=== PATIENT | male | born 1980 | race Caucasian/White ===

== ENCOUNTER 2019-06-01 16:13 | Emergency (ER) | payer BC ==
[2019-06-01 17:14] LABS: ANION GAP 14.8; CHLORIDE,CL 103 mmol/L (101-111); SODIUM,NA 136 mmol/L (135-145)
--- NOTE | 2019-06-01 17:26 | EDM.PDOC ---
ED HPI GENERAL MEDICAL PROBLEM - General Chief Complaint: Abdominal Pain Stated Complaint: ABD PAIN Time Seen by Provider: 06/01/19 17:04 Source of Information: Reports: Patient History Limitations: Reports: No Limitations - History of Present Illness INITIAL COMMENTS - FREE TEXT/NARRATIVE: This 39 yo male patient reports to the ED with diffuse abdominal pain and a week long history of constipation. The patient has had a history of abdominal/ pelvis surgeries. The patient reports he was in [place] eating mostly fruits, but when he got back 1 week ago, he changed his diet to mostly meat and has been having constipation problems since that time. The patient has attempted OTC laxatives, but has not been able to pass stool. The patient reported due to increased pain in his abdomen. Onset: Gradual Duration: Day(s):, Constant, Getting Worse Location: Reports: Abdomen Quality: Reports: Other Severity: Moderate Improves with: Reports: None Worsens with: Reports: None Context: Reports: Other Bilateral Lower Abdomen Pain Score (Numeric/FACES): 9 - Related Data Allergies Allergy/AdvReac Type Severity Reaction Status Date / Time Penicillins Allergy Severe Anaphylactic Verified 06/01/19 16:34 Shock promethazine [From Phenergan] Allergy Severe Muscle Verified 06/01/19 16:35 Aches Home Meds: Home Meds oxyCODONE HCl/Acetaminophen [Oxycodone-Acetaminophen 10-300] 1 tab PO TID [History] Past Medical History HEENT History: Reports: None Cardiovascular History: Reports: None Respiratory History: Reports: Other (See Below) Other Respiratory History: collapsed lung Gastrointestinal History: Reports: None Genitourinary History: Reports: None Musculoskeletal History: Reports: Fracture Other Musculoskeletal History: RIGHT femur- miley with 4 pins, 24 fractures and 2 major breaks in hips and pelvis-5 inch bolt through sacrum. 4 broken ribs, shattered elbow-plate with 7 screws. Plate was removed and 3 screws remain. 3 vertebrae injured. Other Neuro History: legs, hips, and hands neuropathy Psychiatric History: Reports: None Endocrine/Metabolic History: Reports: None Hematologic History: Reports: None Oncologic (Cancer) History: Reports: None Dermatologic History: Reports: None - Infectious Disease History Infectious Disease History: Reports: C-Difficile - Past Surgical History Head Surgeries/Procedures: Reports: None HEENT Surgical History: Reports: None Cardiovascular Surgical History: Reports: None Respiratory Surgical History: Reports: None GI Surgical History: Reports: None Endocrine Surgical History: Reports: None Neurological Surgical History: Reports: None Other Musculoskeletal Surgeries/Procedures:: See above Oncologic Surgical History: Reports: None Dermatological Surgical History: Reports: None Social & Family History - Family History Family Medical History: Noncontributory - Tobacco Use Smoking Status *Q: Never Smoker - Caffeine Use Caffeine Use: Reports: Coffee - Recreational Drug Use Recreational Drug Use: Yes Drug Use in Last 12 Months: Yes Recreational Drug Type: Reports: Marijuana/Hashish Other Recreational Drug Type: In [place] Recreational Drug Use Frequency: Rarely ED ROS GENERAL - Review of Systems Review Of Systems: Comprehensive ROS is negative, except as noted in HPI. ED EXAM, GI/ABD - Physical Exam Exam: Not Obtained Exam Limited By: No Limitations General Appearance: Alert, WD/WN, Moderate Distress Eyes: Bilateral: Normal Appearance, EOMI Ears: Normal External Exam, Normal Canal, Hearing Grossly Normal, Normal TMs Nose: Normal Inspection, Normal Mucosa, No Blood Throat/Mouth: Normal Inspection, Normal Lips, Normal Teeth, Normal Gums, Normal Oropharynx, Normal Voice, No Airway Compromise Head: Atraumatic, Normocephalic Neck: Normal Inspection, Supple, Non-Tender, Full Range of Motion Respiratory/Chest: No Respiratory Distress, Lungs Clear, Normal Breath Sounds, No Accessory Muscle Use, Chest Non-Tender Cardiovascular: Normal Peripheral Pulses, Regular Rate, Rhythm, No Edema, No Gallop, No JVD, No Murmur, No Rub GI/Abdominal Exam: Normal Bowel Sounds, No Organomegaly, No Distention, No Abnormal Bruit, No Mass, Pelvis Stable, Tender (diffuse) (Male) Exam: Deferred Rectal (Males) Exam: Deferred Back Exam: Normal Inspection, Full Range of Motion, NT Extremities: Normal Inspection, Normal Range of Motion, Non-Tender, Normal Capillary Refill, No Pedal Edema Neurological: Alert, Oriented, CN II-XII Intact, Normal Cognition, Normal Gait, Normal Reflexes, No Motor/Sensory Deficits Psychiatric: Normal Affect Skin Exam: Warm, Dry, Intact, Normal Color, No Rash Lymphatic: No Adenopathy Course - Vital Signs Last Recorded V/S: Last Vital Signs Temp 36.1 C 06/01/19 16:24 Pulse 61 06/01/19 16:24 Resp 18 06/01/19 16:24 BP 142/87 H 06/01/19 16:24 Pulse Ox 100 06/01/19 16:24 - Orders/Labs/Meds Orders: Active Orders 24 hr Category Date Time Status Enema [RC] ASDIRECTED Care 06/01/19 17:44 Active CULTURE BLOOD [BC] Stat Lab 06/01/19 16:34 Received Labs: Laboratory Tests 06/01/19 06/01/19 06/01/19 Range/Units 16:34 16:34 16:34 WBC 13.7 H (5.0-10.0) 10^3/uL RBC 4.82 (4.6-6.2) 10^6/uL Hgb 15.4 (14.0-18.0) g/dL Hct 44.2 (40.0-54.0) % MCV 91.7 (80-100) fL MCH 32.0 (27.0-34.0) pg MCHC 34.8 (33.0-35.0) g/dL Plt Count 255 (150-450) 10^3/uL Neut % (Auto) 74.9 (42.2-75.2) % Lymph % (Auto) 16.8 L (20.5-50.1) % [place] % (Auto) 5.7 (2-8) % Eos % (Auto) 2.1 (1.0-3.0) % Baso % (Auto) 0.5 (0.0-1.0) % Sodium (135-145) mmol/L Potassium (3.6-5.0) mmol/L Chloride (101-111) mmol/L Carbon Dioxide (21.0-31.0) mmol/L Anion Gap BUN (7-18) mg/dL Creatinine (0.6-1.3) mg/dL Est Cr Clr Drug Dosing mL/min Estimated GFR (MDRD) BUN/Creatinine Ratio Glucose (74-105) mg/dL Lactic Acid 1.4 (0.5-2.2) mmol/L Calcium (8.4-10.2) mg/dl Total Bilirubin (0.2-1.0) mg/dL AST (10-42) IU/L ALT (10-60) IU/L Alkaline Phosphatase (42-121) IU/L Total Protein (6.7-8.2) g/dl Albumin (3.2-5.5) g/dl Globulin Albumin/Globulin Ratio Amylase 132 H (28-100) U/L Lipase 27 (22-51) U/L Urine Color (YELLOW) Urine Appearance (CLEAR) Urine pH (5.0-9.0) Ur Specific [place] (1.005-1.030) Urine Protein (NEGATIVE) Urine Glucose (UA) (NEGATIVE) Urine Ketones (NEGATIVE) Urine Occult Blood (NEGATIVE) Urine Nitrite (NEGATIVE) Urine Bilirubin (NEGATIVE) Urine Urobilinogen (0.2-1.0) mg/dL Ur Leukocyte Esterase (NEGATIVE) Urine Opiates Screen (NEGATIVE) Ur Oxycodone Screen (NEGATIVE) Urine Methadone Screen (NEGATIVE) Ur Barbiturates Screen (NEGATIVE) U Tricyclic Antidepress (NEGATIVE) Ur Phencyclidine Scrn (NEGATIVE) Ur Amphetamine Screen (NEGATIVE) U Methamphetamines Scrn (NEGATIVE) Urine MDMA Screen (NEGATIVE) U Benzodiazepines Scrn (NEGATIVE) Urine Cocaine Screen (NEGATIVE) U Marijuana (THC) Screen (NEGATIVE) 06/01/19 06/01/19 06/01/19 Range/Units 16:34 17:38 17:38 WBC (5.0-10.0) 10^3/uL RBC (4.6-6.2) 10^6/uL Hgb (14.0-18.0) g/dL Hct (40.0-54.0) % MCV (80-100) fL MCH (27.0-34.0) pg MCHC (33.0-35.0) g/dL Plt Count (150-450) 10^3/uL Neut % (Auto) (42.2-75.2) % Lymph % (Auto) (20.5-50.1) % [place] % (Auto) (2-8) % Eos % (Auto) (1.0-3.0) % Baso % (Auto) (0.0-1.0) % Sodium 136 (135-145) mmol/L Potassium 3.8 (3.6-5.0) mmol/L Chloride 103 (101-111) mmol/L Carbon Dioxide 22.0 (21.0-31.0) mmol/L Anion Gap 14.8 BUN 18 (7-18) mg/dL Creatinine 1.0 (0.6-1.3) mg/dL Est Cr Clr Drug Dosing 96.00 mL/min Estimated GFR (MDRD) > 60 BUN/Creatinine Ratio 18.00 Glucose 133 H (74-105) mg/dL Lactic Acid (0.5-2.2) mmol/L Calcium 9.2 (8.4-10.2) mg/dl Total Bilirubin 0.8 (0.2-1.0) mg/dL AST 18 (10-42) IU/L ALT 15 (10-60) IU/L Alkaline Phosphatase 55 (42-121) IU/L Total Protein 7.3 (6.7-8.2) g/dl Albumin 4.6 (3.2-5.5) g/dl Globulin 2.7 Albumin/Globulin Ratio 1.70 Amylase (28-100) U/L Lipase (22-51) U/L Urine Color Yellow (YELLOW) Urine Appearance Clear (CLEAR) Urine pH 5.5 (5.0-9.0) Ur Specific [place] >= 1.030 (1.005-1.030) Urine Protein Negative (NEGATIVE) Urine Glucose (UA) Negative (NEGATIVE) Urine Ketones Trace H (NEGATIVE) Urine Occult Blood Negative (NEGATIVE) Urine Nitrite Negative (NEGATIVE) Urine Bilirubin Negative (NEGATIVE) Urine Urobilinogen 0.2 (0.2-1.0) mg/dL Ur Leukocyte Esterase Negative (NEGATIVE) Urine Opiates Screen Negative (NEGATIVE) Ur Oxycodone Screen Positive H (NEGATIVE) Urine Methadone Screen Negative (NEGATIVE) Ur Barbiturates Screen Negative (NEGATIVE) U Tricyclic Antidepress Negative (NEGATIVE) Ur Phencyclidine Scrn Negative (NEGATIVE) Ur Amphetamine Screen Negative (NEGATIVE) U Methamphetamines Scrn Negative (NEGATIVE) Urine MDMA Screen Negative (NEGATIVE) U Benzodiazepines Scrn Negative (NEGATIVE) Urine Cocaine Screen Negative (NEGATIVE) U Marijuana (THC) Screen Positive H (NEGATIVE) Meds: Medications Discontinued Medications Generic Name Dose Route Start Last Admin Trade Name Freq PRN Reason Stop Dose Admin Magnesium Citrate 296 ml 06/01/19 17:47 Citrate Of Magnesia PO 06/01/19 17:48 ONETIME ONE Departure - Departure Time of Disposition: 18:37 Disposition: Home, Self-Care 01 Condition: Fair Clinical Impression: Constipation Qualifiers: Constipation type: unspecified constipation type Qualified Code(s): K59.00 - Constipation, unspecified - Discharge Information *PRESCRIPTION DRUG MONITORING PROGRAM REVIEWED*: Not Applicable *COPY OF PRESCRIPTION DRUG MONITORING REPORT IN PATIENT YAYO: Not Applicable Instructions: Constipation, Adult, [id number] Forms: ED Department Discharge Care Plan Goals: The patient was advised of the examination, lab and x-ray results during the visit. The patient was given an enema to relieve constipation wiht good results. After the enema, the patient was given a bottle of Magnesium Citrate. The patient was encouraged to increase his oral fluid intake and continue to use stool softeners over the next 3-4 days. If the patient has any additional symptoms or concerns, the patient should either return to the emergency department or visit his primary care facility. - My Orders Last 24 Hours: My Active Orders 06/01/19 16:34 CULTURE BLOOD [BC] Stat 06/01/19 17:44 Enema [RC] ASDIRECTED - Assessment/Plan Last 24 Hours: My Active Orders 06/01/19 16:34 CULTURE BLOOD [BC] Stat 06/01/19 17:44 Enema [RC] ASDIRECTED
--- NOTE | 2019-06-01 17:42 | CR ---
EXAMINATION: Abdomen 1V Flat SEX: Male AGE: 39 years CLINICAL HISTORY: 39-year-old male complaining of abdominal pain/CONSTIPATION. History falling off of scaffolding ("years ago") INTERPRETATION: 1. Orthopedic screw transfixing the right iliac wing and sacrum. Intramedullary miley and nails proximal right femur. 2. Minimal stool in the rectum. No abdominal soft tissue mass lesion. 3. No sign of mechanical bowel obstruction. 4. Lung bases clear. CONCLUSION: Evidence of old trauma. Nonspecific i.e. negative plain film exam of the abdomen.
[2019-06-01] MEDS ORDERED: Magnesium Citrate Solution 296 ML Bottle PO ONE (17:47)
== END 2019-06-01 19:25 | disposition home or self-care (01) ==
LOC: DL.ED 16:13
DX: K59.00 Constipation, unspecified (principal); Z88.0 Allergy status to penicillin; Z88.8 Allergy status to other drugs, medicaments and biological substances
CPT/HCPCS: 36415; 74018; 80053; 80305; 81003; 82150; 83605; 83690; 85025; 87040; 99284; A9270

== ENCOUNTER 2023-11-11 10:03 | Inpatient (IN) | payer BC, OTHER ==
[2023-11-11] MEDS: Pantoprazole 40 MG Vial IVPUSH ONE (09:12)
[2023-11-11 09:19] LABS: APPEARANCE,URINE CLEAR (CLEAR); BILIRUBIN,URINE SMALL (NEGATIVE); COLOR,URINE YELLOW (YELLOW); GLUCOSE,URINE NEGATIVE (NEGATIVE); KETONES,URINE >=160 (NEGATIVE); LEUKOCYTE ESTERASE,URINE NEGATIVE (NEGATIVE); NITRITE,URINE NEGATIVE (NEGATIVE); OCCULT BLOOD,URINE NEGATIVE (NEGATIVE); PROTEIN,URINE TRACE (NEGATIVE); UROBILINOGEN,URINE 0.2 mg/dL (0.2-1.0)
[2023-11-11] MEDS: Sodium Chloride 0.9% 10 ML Syringe FLUSH PRN (09:20)
[2023-11-11] MEDS: Iopamidol 612 MG/ML 100 ML Bottle IVPUSH ONE (09:28)
[2023-11-11 09:33] LABS: A/G RATIO 1.1; ALBUMIN 4.1 g/dL (3.4-5.0); ANION GAP 16.9 mEq/L (7-13); BILIRUBIN TOTAL 0.8 mg/dL (0.2-1.0); BUN/CREATININE RATIO 16.5 (No establ ref range); CALCIUM 9.1 mg/dL (8.5-10.1); CREATININE 1.09 mg/dL (0.70-1.30); EST CRCL DRUG DOSING (CG) 94.03 mL/min; POTASSIUM,K 3.9 mmol/L (3.5-5.1); PROTEIN TOTAL,TP 7.7 g/dL (6.4-8.2)
[2023-11-11 09:41] LABS: BASOPHILS PERCENT AUTO 0.2 % (0.0-1.0); EOSINOPHILS PERCENT AUTO 0.1 % (1.0-3.0); HEMATOCRIT 46.9 % (40.0-54.0); HEMOGLOBIN 16.6 g/dL (14.0-18.0); LYMPHOCYTES PERCENT AUTO 10.4 % (20.5-50.1); MEAN CORPUSCULAR HEMOGLOBIN 31.7 pg (27.0-34.0); MEAN CORPUSCULAR HGB CONC 35.4 g/dL (33.0-35.0); MEAN CORPUSCULAR VOLUME 89.5 fL (80-100); MONOCYTES PERCENT AUTO 7.2 % (2-8); NEUTROPHILS PERCENT AUTO 82.1 % (42.2-75.2); PLATELET COUNT,PLT 287 10^3/uL (150-450); RED BLOOD CELL COUNT 5.24 10^6/uL (4.6-6.2); WHITE BLOOD CELL COUNT,WBC 20.4 10^3/uL (5.0-10.0)
[2023-11-11 09:45] LABS: BACTERIA,URINE RARE /HPF (0-FEW/HPF); EPITHELIAL CELLS,URINE RARE /HPF (NOT SEEN); MUCUS,URINE MANY /LPF (NOT SEEN); RBC,URINE 0-5 /HPF (0-5); WBC,URINE 0-5 /HPF (0-5/HPF)
[2023-11-11 09:49] LABS: PROTHROMBIN TIME 10.3 SEC (9.0-12.0)
[2023-11-11] MEDS: Ondansetron 4 MG/2 ML SDV IVPUSH ONE (09:49)
[2023-11-11] MEDS: HYDROmorphone 1 MG/ML Syringe IVPUSH ONE ×2 (09:53→11:42)
[2023-11-11] MEDS: Sodium Chloride 0.9% 1,000 ML IV ONE ×2 (09:57→11:21)
[2023-11-11] MEDS: metroNIDAZOLE/Normal Saline 500 MG in Premix Bag 1 BAG IV ONE (11:14)
[2023-11-11] MEDS: Ciprofloxacin in D5W 400 MG in Premix Bag 1 BAG IV ONE (11:16)
[2023-11-11] MEDS ORDERED: HYDROmorphone 0.5 MG/0.5 ML Syringe IVPUSH PRN (11:59)
[2023-11-11] MEDS ORDERED: Acetaminophen/oxyCODONE 325-5 MG Tab PO PRN (11:59)
[2023-11-11] MEDS ORDERED: Naloxone 2 MG/2 ML Syringe IVPUSH PRN (11:59)
[2023-11-11] MEDS ORDERED: Temazepam 15 MG Cap PO PRN (11:59)
[2023-11-11] MEDS ORDERED: Acetaminophen 325 MG Tab PO PRN (11:59)
[2023-11-11] MEDS ORDERED: Albuterol/Ipratropium 3.0-0.5 MG/3 ML Neb Soln NEB PRN (11:59)
[2023-11-11] MEDS ORDERED: Metoprolol Tartrate 5 MG/5 ML SDV IVPUSH PRN (12:02)
[2023-11-11] MEDS ORDERED: hydrALAZINE 20 MG/ML SDV IVPUSH PRN (12:02)
[2023-11-11 12:17] LABS: AMPHETAMINES,URINE NEGATIVE (NEGATIVE); BARBITURATES,URINE NEGATIVE (NEGATIVE); BENZODIAZEPINE,URINE NEGATIVE (NEGATIVE); MDMA (ECSTASY), URINE NEGATIVE (NEGATIVE); METHADONE,URINE NEGATIVE (NEGATIVE); METHAMPHETAMINES,URINE NEGATIVE (NEGATIVE); OPIATES,URINE NEGATIVE (NEGATIVE); OXYCODONE,URINE NEGATIVE (NEGATIVE); PHENCYCLIDINE,URINE NEGATIVE (NEGATIVE); TCA,URINE NEGATIVE (NEGATIVE)
[2023-11-11] MEDS ORDERED: Acetaminophen/HYDROcodone 325-5 MG Tab PO PRN (12:35)
[2023-11-11] MEDS: Morphine 2 MG/ML SYRINGE IVPUSH PRN ×2 (13:02→20:09)
[2023-11-11] MEDS: Dextrose 5%-0.9% NaCl 1,000 ML IV SCH (13:02)
[2023-11-11] MEDS: Ondansetron 4 MG/2 ML SDV IVPUSH PRN (16:14)
[2023-11-11] MEDS: metroNIDAZOLE/Normal Saline 500 MG in Premix Bag 1 BAG IV SCH (16:24)
[2023-11-11] MEDS: Scopalamine 1mg/3day Transdermal Patch TRDERM ONE (17:07)
[2023-11-11] MEDS ORDERED: Melatonin 3 MG Tab PO PRN (19:50)
[2023-11-11] MEDS: Metoclopramide 10 MG/2 ML SDV IVPUSH PRN (20:54)
[2023-11-11] MEDS: Ciprofloxacin in D5W 200 MG in Premix Bag 1 BAG IV SCH (21:02)
[2023-11-11] MEDS: Saccharomyces Boulardii (Probiotic) 250 MG Cap PO SCH (21:50)
[2023-11-12 06:22] LABS: BASOPHILS PERCENT AUTO 0.2 % (0.0-1.0); EOSINOPHILS PERCENT AUTO 0.1 % (1.0-3.0); HEMATOCRIT 41.1 % (40.0-54.0); HEMOGLOBIN 14.3 g/dL (14.0-18.0); LYMPHOCYTES PERCENT AUTO 7.8 % (20.5-50.1); MEAN CORPUSCULAR HEMOGLOBIN 31.4 pg (27.0-34.0); MEAN CORPUSCULAR HGB CONC 34.8 g/dL (33.0-35.0); MEAN CORPUSCULAR VOLUME 90.3 fL (80-100); MONOCYTES PERCENT AUTO 7.4 % (2-8); NEUTROPHILS PERCENT AUTO 84.5 % (42.2-75.2); PLATELET COUNT,PLT 265 10^3/uL (150-450); RED BLOOD CELL COUNT 4.55 10^6/uL (4.6-6.2); WHITE BLOOD CELL COUNT,WBC 17.8 10^3/uL (5.0-10.0)
[2023-11-12 07:03] LABS: ALBUMIN 3.2 g/dL (3.4-5.0); ANION GAP 16.5 mEq/L (7-13); BILIRUBIN TOTAL 0.6 mg/dL (0.2-1.0); BUN/CREATININE RATIO 9.6 (No establ ref range); C-REACTIVE PROTEIN 10.28 ng/dL (<=0.50); CREATININE 0.94 mg/dL (0.70-1.30); EST CRCL DRUG DOSING (CG) 109.03 mL/min; MAGNESIUM 1.8 mg/dL (1.8-2.4); POTASSIUM,K 3.5 mmol/L (3.5-5.1); PROTEIN TOTAL,TP 6.5 g/dL (6.4-8.2)
[2023-11-12 07:05] LABS: A/G RATIO 0.97
[2023-11-12] MEDS: Dicyclomine 10 MG Cap PO PRN (11:52)
[2023-11-12] MEDS: Ketorolac 30 MG/ML SDV IVPUSH PRN (20:44)
[2023-11-13 06:34] LABS: BASOPHILS PERCENT AUTO 0.3 % (0.0-1.0); EOSINOPHILS PERCENT AUTO 0.2 % (1.0-3.0); HEMATOCRIT 40.7 % (40.0-54.0); LYMPHOCYTES PERCENT AUTO 5.8 % (20.5-50.1); MEAN CORPUSCULAR HEMOGLOBIN 31.3 pg (27.0-34.0); MEAN CORPUSCULAR HGB CONC 34.4 g/dL (33.0-35.0); MEAN CORPUSCULAR VOLUME 90.8 fL (80-100); MONOCYTES PERCENT AUTO 8.2 % (2-8); NEUTROPHILS PERCENT AUTO 85.5 % (42.2-75.2); PLATELET COUNT,PLT 230 10^3/uL (150-450); RED BLOOD CELL COUNT 4.48 10^6/uL (4.6-6.2); WHITE BLOOD CELL COUNT,WBC 17.9 10^3/uL (5.0-10.0)
[2023-11-13 06:54] LABS: ANION GAP 16.5 mEq/L (7-13); BILIRUBIN TOTAL 0.5 mg/dL (0.2-1.0); BUN/CREATININE RATIO 10.9 (No establ ref range); C-REACTIVE PROTEIN 10.13 ng/dL (<=0.50); CALCIUM 8.1 mg/dL (8.5-10.1); CREATININE 0.92 mg/dL (0.70-1.30); EST CRCL DRUG DOSING (CG) 111.4 mL/min; MAGNESIUM 1.7 mg/dL (1.8-2.4); POTASSIUM,K 3.5 mmol/L (3.5-5.1); PROTEIN TOTAL,TP 6.6 g/dL (6.4-8.2)
[2023-11-13 06:57] LABS: A/G RATIO 0.83
[2023-11-13] MEDS: Magnesium Sulfate/Water 2 GM in Premix Bag 1 BAG IV ONE (08:50)
[2023-11-13] MEDS: Sodium Chloride 0.65% Nasal Spray 45 ML Bottle NAS SCH (08:52)
[2023-11-13] MEDS: Capsaicin 0.025% Crm 60 GM Tube TOP SCH (08:53)
[2023-11-13] MEDS: Haloperidol Lactate 5 MG/ML SDV IVPUSH SCH (08:54)
[2023-11-13] MEDS: Oxymetazoline 0.05% Nasal Spray 30 ML Bottle NAS SCH (15:58)
[2023-11-13] MEDS: Iopamidol 612 MG/ML 100 ML Bottle IVPUSH ONE (16:16)
[2023-11-13] MEDS: Sodium Chloride 0.9% 1,000 ML IV SCH (16:50)
[2023-11-13] MEDS ORDERED: Morphine 2 MG/ML SYRINGE IVPUSH PRN (20:36)
[2023-11-14 06:16] LABS: BASOPHILS PERCENT AUTO 0.4 % (0.0-1.0); EOSINOPHILS PERCENT AUTO 0.6 % (1.0-3.0); HEMATOCRIT 41.2 % (40.0-54.0); HEMOGLOBIN 14.3 g/dL (14.0-18.0); LYMPHOCYTES PERCENT AUTO 10.7 % (20.5-50.1); MEAN CORPUSCULAR HEMOGLOBIN 31.2 pg (27.0-34.0); MEAN CORPUSCULAR HGB CONC 34.7 g/dL (33.0-35.0); MONOCYTES PERCENT AUTO 6.9 % (2-8); NEUTROPHILS PERCENT AUTO 81.4 % (42.2-75.2); PLATELET COUNT,PLT 254 10^3/uL (150-450); RED BLOOD CELL COUNT 4.58 10^6/uL (4.6-6.2); WHITE BLOOD CELL COUNT,WBC 15.9 10^3/uL (5.0-10.0)
[2023-11-14 06:59] LABS: A/G RATIO 0.77; ANION GAP 15.3 mEq/L (7-13); BILIRUBIN TOTAL 0.4 mg/dL (0.2-1.0); BUN/CREATININE RATIO 10.5 (No establ ref range); C-REACTIVE PROTEIN 7.64 ng/dL (<=0.50); CALCIUM 8.1 mg/dL (8.5-10.1); CREATININE 0.95 mg/dL (0.70-1.30); EST CRCL DRUG DOSING (CG) 107.89 mL/min; POTASSIUM,K 3.3 mmol/L (3.5-5.1); PROTEIN TOTAL,TP 6.9 g/dL (6.4-8.2)
[2023-11-14] MEDS: Potassium Chloride 10 MEQ Tab.ER PO SCH (09:43)
[2023-11-14] MEDS ORDERED: LORazepam 1 MG Tab PO ONE (16:38)
[2023-11-14] MEDS: Ciprofloxacin 500 MG Tab PO ONE ×2 (17:10→17:11)
== END 2023-11-14 17:35 | disposition home or self-care (01) | DRG 392 ==
LOC: DL.ED 10:03 → DL.MS 11:05 → OBSVTOIN 11-13 11:05
PROVIDERS: ADMIT Internal Medicine; ATTEND Internal Medicine
DX: K52.9 Noninfective gastroenteritis and colitis, unspecified (principal); N30.00 Acute cystitis without hematuria; K92.0 Hematemesis; R04.0 Epistaxis; D72.829 Elevated white blood cell count, unspecified; R73.9 Hyperglycemia, unspecified; E86.0 Dehydration; G89.29 Other chronic pain; E83.42 Hypomagnesemia; K57.90 Diverticulosis of intestine, part unspecified, without perforation or abscess without bleeding; F12.90 Cannabis use, unspecified, uncomplicated; Z87.81 Personal history of (healed) traumatic fracture; Z98.890 Other specified postprocedural states; Z88.0 Allergy status to penicillin; Z88.8 Allergy status to other drugs, medicaments and biological substances; Z79.899 Other long term (current) drug therapy; Z87.891 Personal history of nicotine dependence
CPT/HCPCS: 36415; 74177; 80053; 80305-QW; 81001; 82271; 82272; 83605; 83690; 83735; 85025; 85610; 86140; 87040; 96361; 96365; 96368; 96375; 96376; 99284; 99285-25; A9270-GY; C9113; J0744; J1170; J1630; J1836; J1885; J2270; J2405; J2765; J3475; J3490; J7030; J7042; Q9967